=== PATIENT | female | born 1985 | race Caucasian/White ===

== ENCOUNTER 2018-11-03 19:19 | Observation (INO) | payer BC ==
[~2018-11-03] VITALS: Ht 180.3 cm; Wt 115.8 kg
[2018-11-03 20:35] LABS: BASO # 0.1 (0.0-0.2); BASO % 0.5 % (0.0-2.0); EOS # 0.2 (0.0-0.7); EOS % 1.1 % (0-4.0); GRAN # 9.4 (1.4-6.5); HEMATOCRIT 40.5 % (37.0-47.0); LYMPH # 2.9 (1.2-3.4); LYMPH % 22.2 % (20.0-51.0); MEAN CELL VOLUME 78 fl (80.0-100.0); MEAN CORPUSCULAR HEMOGLOBIN 27 pg (27.0-31.0); MEAN CORPUSCULAR HGB CONC 35 g/dl (33.0-37.0); MONO # 0.5 (0.1-0.6); PLATELET COUNT 315 K/mm3 (130-400); RED BLOOD COUNT 5.17 M/mm3 (4.10-5.30); REDCELL DISTRIBUTION WIDTH-CV 11.7 % (11.5-14.5)
[2018-11-03 20:48] LABS: BILIRUBIN,TOTAL 0.8 mg/dL (0.0-1.0); CALCIUM 9.7 mg/dL (8.4-10.2); CREATININE, serum 0.7 mg/dL (0.52-1.25); TOTAL PROTEIN 8.7 gm/dL (6.4-8.2)
[2018-11-03 20:57] LABS: COLLECTION METHOD CLEAN CATCH
[2018-11-03 21:09] LABS: MUCOUS Present /lpf; PH 5 (5-8); SQUAMOUS EPITHELIAL 0-2 /hpf; URINE APPEARANCE Hazy; URINE BACTERIA Rare /hpf; URINE BILIRUBIN Negative (NEGATIVE); URINE BLOOD Negative (NEGATIVE); URINE COLOR Yellow; URINE GLUCOSE Negative (NEGATIVE); URINE KETONE Negative (NEGATIVE); URINE LEUKOCYTE ESTERASE Negative (NEGATIVE); URINE NITRATE Negative (NEGATIVE); URINE PROTEIN(semi-quant) 1+ (NEGATIVE); URINE UROBILINOGEN Negative (NEGATIVE)
[2018-11-03 23:02] VITALS: BP 135/82; PULSE 68; TEMP 98.6
[2018-11-03 23:05] VITALS: BP 135/82; PULSE 74; TEMP 98.8
--- NOTE | 2018-11-03 23:46 | NUR ---
Pt. arrived to the floor. Pt. is A&OX3, assessment complete. INT to rt. ac patent. Pt. denies pain at this time. Call light within reach.
[2018-11-04] VITALS (12 sets, daily range): BP systolic 113–146; BP diastolic 65–82; PULSE 65–78; TEMP 97.7–98.5
--- NOTE | 2018-11-04 06:20 | NUR ---
Pt. slept well through the night. Pt. remains A&OX3. IV to lt. ac patent. Pt. denies pain or other needs at this time.
--- NOTE | 2018-11-04 07:48 | NUR ---
Patient sitting up in bed. rounded. Orders obtained. Consent obtained. Dilaudid for stabbing RUQ pain. She denies Nausea. Npo for procedure. Will monitor.
--- NOTE | 2018-11-04 09:03 | NUR ---
Initial visit; Patient thanked [employer] for looking in on her and offering God's blessings.
--- NOTE | 2018-11-04 09:48 | NUR ---
Pain better managed at this time. Anesthesia rouned & Lr started to gravity rounded.
--- NOTE | 2018-11-04 11:27 | NUR ---
Patient showered & ready for OR. Jewlery off. Ivf to gravity. clean gown on.
--- NOTE | 2018-11-04 14:22 | NUR ---
Report from Radha Pacu nurse. Patient to room 349. Patient sleepy. Post op vitals stable on room air. Lap sites x3 bandaids intact. Scds ble. Will montior closely.
--- NOTE | 2018-11-04 15:58 | NUR ---
Patient having nausea after norco for pain, zofran given. Patient had a pack of crackers & water & applesauce. Diaz mendez.
--- NOTE | 2018-11-04 16:38 | NUR ---
SW met with patient to discuss discharge needs. Patient lives independently at home with her . Patient does not have a PCP but she will contact the [facility] to get established with a doctor there. Patient's preferred [facility]. Patient does not use any medical equipment or home health services. Patient does not have a DPOA and is not interested in that at this time. SW does not anticipate any discharge needs.
[2018-11-04] MEDS ORDERED: NORCO 325 MG-51 TAB PO (16:46)
--- NOTE | 2018-11-04 18:15 | NUR ---
Patient resting more comfortably at this time. denies wanting any food. Will monitor.
--- NOTE | 2018-11-04 20:50 | NUR ---
Assessment completed. Patient is A&O x 4. VSS, on room air. [place] given for c/o abdominal pain after up ambulating to the restroom. Abdominal lap sites x 3 with bandaids are CDI. Bowel sounds present. Has eaten a few crackers this evening, does not have an appetite for anything else at this time. Denies passing any gas. Voiding with no difficulities. INT to left antecubital. BLE scds on. Up with standby assist with a slow steady gait. Denies any concerns or needs at this time, call light is within reach.
[2018-11-05 00:19] VITALS: BP 118/62; PULSE 73; TEMP 98.6
[2018-11-05 04:10] VITALS: BP 140/89; PULSE 67; TEMP 98.5
--- NOTE | 2018-11-05 05:24 | NUR ---
Patient has rested well through the night. VSS, remains on room air. Pain controlled with oral pain medication. Abdominal lap sites with bandaids remain CDI. Denies any nausea, has only had crackers on this shift denies wanting anything else to eat. IV to INT with good PO intake. Denies any concerns or needs at this time, call light remains within reach.
[2018-11-05 07:30] VITALS: BP 121/66; PULSE 63; TEMP 98.1
--- NOTE | 2018-11-05 08:21 | NUR ---
Reported on to HEATHER Joe at 0700. Shift assessment performed at 0730. VSS. 3 abd incisions are CDI, umbilical incision has some blue ecchymosis. Denies passing flatus. Last BM 11/02/18. No c/o pain or nausea.
--- NOTE | 2018-11-05 10:00 | NUR ---
C/o pain level 1/10 in abdomen, discomforting. Requests to take shower independently.
--- NOTE | 2018-11-05 10:00 | NUR ---
Patient alert and oriented, answers questions appropriately. See assessment. Abdomen soft, non tender, non distended. Bowel sounds hyperactive x4 quads. No c/o abdominal pain or tenderness. No other c/o at this time.
--- NOTE | 2018-11-05 10:02 | NUR ---
Checked on pt at 0900. Still denies flatus, pain, and nausea. Voiding independently. Ambulating around room. Back in bed at 0930, SCDs back on, call light within reach.
--- NOTE | 2018-11-05 11:38 | NUR ---
INT discontinued. Catheter tip intact. Bandaid applied. Discharge teaching about post-cholecystectomy diet, activity, medication, and signs to watch for completed. Pt verbalized understanding and had all questions answered. Reported off to Tatyana ROMERO.
--- NOTE | 2018-11-05 11:56 | NUR ---
Discharge instructions reviewed with patient and friend, verbalized understanding. Discharged via wheelchair to auto/home with friend at 1145.
== END 2018-11-05 11:45 | disposition home or self-care (01) ==
LOC: COL.ER 19:19 → SURG 22:21
PROVIDERS: Physician Assistant; ADMIT Surgery
DX: K80.10 Calculus of gallbladder with chronic cholecystitis without obstruction (principal)
CPT/HCPCS: G0378; J0690; J1100; J1170; J1885; J2405; J2543; J2704; J3010; J7030; J7120; Q9967